=== PATIENT | female | born 1940 | race Caucasian/White ===

== ENCOUNTER 2018-11-03 23:55 | Emergency (ER) | payer OTHER ==
[~2018-11-03] VITALS: Wt 90.0 kg
[2018-11-04] MEDS ORDERED: SOD CHLORIDE 0.9% 1,000 ML IV STA ×2 (00:20→01:18)
[2018-11-04] MEDS ORDERED: HYDROmorphONE 1 MG/ML SYG IV STA (00:20)
[2018-11-04] MEDS ORDERED: ONDANSETRON 4 MG INJ IV STA (00:20)
--- NOTE | 2018-11-04 00:20 | ERD ---
ER Documentation Chief Complaint Chief Complaint bib ra from home for diarrhea and abd. pain, given 500 ml ns and 25 mg fent HPI This is a 78-year-old female who had dinner at [facility], then about [address] later [address] home she started having diffuse severe abdominal pain/cramps with 1 hour in the bathroom having profuse diarrhea. Lots of nausea and near vomiting but did not. No blood in her stool. The patient ate some honey crispy chicken. Currently she states she has diffuse abdominal pain/cramps with severe nausea. ROS All systems reviewed and are negative except as per history of present illness. Allergies Allergies: Coded Allergies: Sulfa (Sulfonamide Antibiotics) (Verified Allergy, Unknown, 11/04/18) cephalexin (Verified Allergy, Unknown, 11/04/18) PMhx/Soc History of Surgery: No Anesthesia Reaction: No Hx Neurological Disorder: No Hx Respiratory Disorders: No Hx Cardiac Disorders: No Hx Psychiatric Problems: No Hx Miscellaneous Medical Probl: Yes (COLONOSCOPY RECENTLY, FOUND PRE-CANCEROUS POLYPS) Hx Alcohol Use: No Hx Substance Use: No Hx Tobacco Use: No Smoking Status: Never smoker FmHx Family History: No coronary disease Physical Exam Vitals Vital Signs Date Temp Pulse Resp B/P (MAP) Pulse Ox O2 O2 Flow FiO2 Time Delivery Rate 11/04/18 98.1 60 19 90/55 (67) 100 Room Air 00:13 11/04/18 98.1 60 19 90/55 (67) 100 00:05 Physical Exam Const: Well-developed, well-nourished Head: Atraumatic, normocephalic Eyes: Normal Conjunctiva, PERRLA, EOMI, normal sclera, no nystagmus ENT: Normal External Ears, Nose and Mouth, moist mucus membranes. Neck: Full range of motion. No meningismus, no lymphadenopathy. Resp: Clear to auscultation bilaterally, no wheezing, rhonchi, rales Cardio: Regular rate and rhythm, no murmurs, S1 S2 present Abd: Soft, diffuse mild to moderate tenderness non distended. Normal bowel sounds, no guarding or rebound, no pulsitile abdominal masses or bruits Skin: No petechiae or rashes, no ecchymosis , no maculopapular rash Back: No midline or flank tenderness Ext: No cyanosis, or edema, FROM x 4, normal inspection, neurovascularly intact x 4 Neur: Awake and alert, STR 5/5 x 4, sensation intact x 4, no focal findings, cerebellum intact Psych: Normal Mood and Affect Result Diagram: 11/04/18 0020 11/04/18 0020 Results 24 hrs Laboratory Tests Test 11/04/18 00:20 White Blood Count 12.7 10^3/ul Red Blood Count 4.50 10^6/ul Hemoglobin 13.7 g/dl Hematocrit 43.2 % Mean Corpuscular Volume 96.0 fl Mean Corpuscular Hemoglobin 30.4 pg Mean Corpuscular Hemoglobin Concent 31.7 g/dl Red Cell Distribution Width 14.5 % Platelet Count 354 10^3/UL Mean Platelet Volume 8.3 fl Immature Granulocytes % 2.100 % Neutrophils % 72.4 % Lymphocytes % 13.7 % Monocytes % 8.3 % Eosinophils % 2.6 % Basophils % 0.9 % Nucleated Red Blood Cells % 0.0 /100WBC Immature Granulocytes # 0.260 10^3/ul Neutrophils # 9.2 10^3/ul Lymphocytes # 1.7 10^3/ul Monocytes # 1.1 10^3/ul Eosinophils # 0.3 10^3/ul Basophils # 0.1 10^3/ul Nucleated Red Blood Cells # 0.0 10^3/ul Sodium Level 131 mmol/L Potassium Level 3.9 mmol/L Chloride Level 93 mmol/L Carbon Dioxide Level 23 mmol/L Anion Gap 15 Blood Urea Nitrogen 23 mg/dl Creatinine 1.48 mg/dl Est Glomerular Filtrat Rate mL/min mL/min Glucose Level 145 mg/dl Calcium Level 9.1 mg/dl Total Bilirubin 0.2 mg/dl Direct Bilirubin 0.00 mg/dl Indirect Bilirubin 0.2 mg/dl Aspartate Amino Transf (AST/SGOT) 31 IU/L Alanine Aminotransferase (ALT/SGPT) 7 IU/L Alkaline Phosphatase 143 IU/L Total Protein 7.0 g/dl Albumin 4.1 g/dl Globulin 2.90 g/dl Albumin/Globulin Ratio 1.41 Lipase 46 U/L Current Medications Medications Dose Sig/Nya Start Time Status Last (Trade) Ordered Route PRN Stop Time Admin Dose Reason Admin Sodium 1,000 ml @ Q1H STAT 11/04/18 DC 11/04/18 Chloride 1,000 mls/hr IV 00:20 01:14 11/04/18 01:19 1 mg ONCE STAT 11/04/18 DC 11/04/18 Hydromorphone IV 00:20 01:12 HCl 11/04/18 00:21 (Dilaudid) Ondansetron 4 mg ONCE STAT 11/04/18 DC 11/04/18 HCl (Zofran IV 00:20 01:14 Inj) 11/04/18 00:21 Sodium 1,000 ml @ Q1H STAT 11/04/18 DC 11/04/18 Chloride 1,000 mls/hr IV 01:18 01:42 11/04/18 02:17 Procedures/MDM Patient: MARIA THAO : 1940 Age: 78 Sex: F MR #: [id number] DOS: 11/04/18 0020 Ordering MD: ARMIDA CHAVIRA DO Location: E/R Room/Bed: PROCEDURE: CT ABDOMEN/PELVIS WITHOUT CONTRAST CLINICAL INDICATION: 78-year-old female with abdominal pain. TECHNIQUE: The study was performed utilizing a [employer] VCT 64-slice CT scanner. Direct axial sections were obtained through the abdomen and pelvis without the use of intravenous contrast material. Sagittal and coronal reformations were obtained. One or more of the following dose reduction techniques were utilized: automated exposure control, adjustment of the mA and/or kV according to patient's size, use of iterative reconstruction technique. DICOM images are available. The images were reviewed on a PACS workstation. CTD/vol = 15.95 mGy; Total Exam DLP = 919.27 mGy.cm. COMPARISON: None. FINDINGS: There is mild bibasilar subsegmental atelectasis with the right lower lobe bronchiectasis. There is no evidence for significant pleural effusion. The liver has a normal size and contour without focal areas of abnormal density. No intrahepatic biliary ductal dilatation is seen. Surgical clips are seen within the gallbladder fossa from prior cholecystectomy. The distal common bile duct measures approximately 8.9 mm.. The pancreas is without areas of abnormal attenuation. Splenic varices are visualized. The spleen is identified and has a normal size without abnormal density. The adrenal glands are unremarkable. The kidneys are without abnormal density. No hydroureteronephrosis nor neph roureterolithiasis is evident. The urinary bladder contains urine. The stomach contains particular material. There is mild fluid identified within the small bowel. There is fluid identified within the distended ascending and transverse colon diffuse thickening of the descending and sigmoid colon without evidence for obstruction. The cecum appears to be within the mid abdomen. The appendix is not visualized however there are no periappendiceal inflammatory changes. The uterus is not visualized consistent with prior hysterectomy. There is a pessary identified. There is no significant pelvic free fluid. The aortoiliac vessels are mildly calcified but without aneurysmal dilatation. Degenerative changes are seen throughout the spine. There is a right total hip arthroplasty in place. IMPRESSION: 1. Dilated fluid-filled small bowel and proximal colon with diffuse thickening of the descending and sigmoid colon most suggestive of an enterocolitis. 2. Status post cholecystectomy with dilated distal common bile duct. 3. Status post hysterectomy with pessary in place. 4. Vascular calcifications. 5. Degenerative changes within the spine. 6. Right total hip arthroplasty. .Narinder Arango MD, MD Date Time Electronically viewed and signed by .Narinder Arango MD, MD on 11/04/2018 02:58 .M/ CC: AMRIDA CHAVIRA DO [id number] CAT scan shows enterocolitis. We will cover with some Cipro and Bentyl and symptomatic control and discharge home Departure Diagnosis: Primary Impression: Enterocolitis Condition: Stable ARMIDA CHAVIRA DO Nov 04, 2018 00:20
[2018-11-04] MEDS ORDERED: ONDA4TAB14 PO (03:16)
[2018-11-04] MEDS ORDERED: CIPR500T4 PO (03:16)
[2018-11-04] MEDS ORDERED: DICY10CA40 PO (03:16)
[2018-11-04 04:00] VITALS: BP 116/66; PULSE 65; RESP 16
== END 2018-11-04 04:32 | disposition home or self-care (01) ==
LOC: E/R 23:55
DX: K52.9 Noninfective gastroenteritis and colitis, unspecified (principal)
CPT/HCPCS: 36415; 74176; 80053; 83690; 85025; 96374; 96375; 99285; J1170; J2405; J7030